=== PATIENT | female | born 1980 | race American Indian/Alaskan Native ===

== ENCOUNTER 2022-08-16 12:31 | Outpatient (CLI) | payer SELFPAY ==
[2022-08-16 13:03] VITALS: BP 111/61
[2022-08-16 17:46] LABS: Color,Urine Amber (Yellow)
[2022-08-16 17:55] LABS: Bacteria,Urine 1+ /HPF (Negative); Calcium Oxalate Crystals,Urine 2+; Mucus,Urine 3+ /HPF
[2022-08-16 18:16] LABS: Ictotest,Urine Negative (Negative)
[2022-08-16] MEDS ORDERED: LIDOCAINE-MPF (1%) 10 MG/1 ML VIAL 5 ML INFILTRATI ONE (19:00)
--- NOTE | 2022-08-17 08:05 | Ultrasound Report ---
ULTRASOUND OBSTETRIC LIMITED ULTRASOUND BIOPHYSICAL PROFILE INDICATION / CLINICAL INFORMATION: BPP and KEM. COMPARISON: None available. FINDINGS: BREATHING MOVEMENT = 2 GROSS BODY MOVEMENT = 2 TONE = 2 QUALITATIVE AMNIOTIC FLUID VOLUME = 2 TOTAL BIOPHYSICAL SCORE = 8/8 HEART RATE (beats per minute): 160 AMNIOTIC FLUID INDEX (cm) = 8.6 (normal = 7-24 cm) PRESENTATION: Cephalic. ADDITIONAL FINDINGS: None. IMPRESSION: 1. Biophysical Score = 8/8 Signer Name: James Santa MD Signed: 08/16/2022 4:46 PM Workstation Name: [id number]
== END 2022-08-16 18:55 | disposition home or self-care (01) ==
LOC: TRG 12:31 → APU 12:34 → TRG 18:55
PROVIDERS: ATTEND Obstetrics & Gynecology
DX: O26.893 Other specified pregnancy related conditions, third trimester (principal); R10.30 Lower abdominal pain, unspecified; O09.523 Supervision of elderly multigravida, third trimester; O99.353 Diseases of the nervous system complicating pregnancy, third trimester; G43.909 Migraine, unspecified, not intractable, without status migrainosus; Z3A.38 38 weeks gestation of pregnancy
CPT/HCPCS: 36415; 59025; 76815; 76819; 81001; 84112; 96372; J0696; J3490

== ENCOUNTER 2022-08-26 19:30 | Outpatient (CLI) | payer SELFPAY ==
[2022-08-26 20:01] VITALS: BP 123/77
== END 2022-08-26 21:15 | disposition home or self-care (01) ==
LOC: TRG 19:30 → APU 19:33 → TRG 21:15
PROVIDERS: ATTEND Obstetrics & Gynecology
DX: O47.1 False labor at or after 37 completed weeks of gestation (principal); Z3A.40 40 weeks gestation of pregnancy
CPT/HCPCS: 59025

== ENCOUNTER 2022-08-27 12:14 | Inpatient (IN) | payer SELFPAY ==
[2022-08-27] MEDS ORDERED: NALOXONE 0.4 MG/1 ML INJ IV PRN ×2 (14:10→21:26)
[2022-08-27] MEDS ORDERED: OXYTOCIN 10 UNIT/1 ML INJ IM PRN (14:10)
[2022-08-27] MEDS ORDERED: fentaNYL 100 MCG/2 ML INJ IV PRN (14:10)
[2022-08-27] MEDS ORDERED: TERBUTALINE 1 MG/1 ML INJ SUB-Q PRN (14:10)
[2022-08-27] MEDS ORDERED: CARBOPROST TROMETHAMINE 250 MCG/1 ML INJ IM PRN (14:10)
[2022-08-27] MEDS ORDERED: ACETAMINOPHEN 325 MG TAB PO PRN (14:10)
[2022-08-27] MEDS ORDERED: miSOPROStol 200 MCG TAB PR PRN (14:10)
[2022-08-27] MEDS ORDERED: MINERAL OIL 30 ML ORAL LIQD PO PRN (14:10)
[2022-08-27] MEDS ORDERED: ONDANSETRON 4 MG/2 ML INJ IV PRN (14:10)
[2022-08-27] MEDS ORDERED: LOPERAMIDE 2 MG CAP PO PRN (14:10)
[2022-08-27] MEDS ORDERED: METHYLERGONOVINE MALEATE 0.2 MG/ML VIAL IM PRN (14:10)
[2022-08-27] MEDS ORDERED: BUTORPHANOL 2 MG/1 ML INJ IV PRN ×2 (14:10)
[2022-08-27] MEDS ORDERED: LIDOCAINE (2%) 20 MG/1 ML VIAL 20 ML MDV INFILTRATI ONE (14:10)
[2022-08-27] MEDS ORDERED: ePHEDrine SULFATE 50 MG/1 ML INJ IV PRN ×2 (14:10→21:26)
[2022-08-27] MEDS ORDERED: LACTATED RINGERS 1,000 ML IV SCH (14:15)
[2022-08-27] MEDS ORDERED: AMPICILLIN/NS 1 GM/50 ML 1 GM/50 ML BAG IV ONE (14:19)
[2022-08-27] MEDS ORDERED: AMPICILLIN/NS 2 GM/100 ML 2 GM/100 ML BAG IV ONE ×2 (14:19→20:40)
--- NOTE | 2022-08-27 14:34 | Ultrasound Report ---
ULTRASOUND OBSTETRIC LIMITED ULTRASOUND BIOPHYSICAL PROFILE INDICATION / CLINICAL INFORMATION: bpp. Clinical Gestational Age (GA) in weeks, days: 40, 2 TECHNIQUE: Transabdominal. COMPARISON: 08/16/2022 FINDINGS: BREATHING MOVEMENT = 2 GROSS BODY MOVEMENT = 2 TONE = 2 QUALITATIVE AMNIOTIC FLUID VOLUME = 2 TOTAL BIOPHYSICAL SCORE = 8/8 HEART RATE (beats per minute): 140 AMNIOTIC FLUID INDEX (cm) = 6.6 (normal = 7-24 cm) PRESENTATION: Cephalic. ADDITIONAL FINDINGS: Although there is mild oligohydramnios the biophysical score for amniotic fluid is set at 2 given the presence of 2 separate quadrants measuring above 2 cm IMPRESSION: 1. Biophysical Score = 8/8 2. Mild oligohydramnios Signer Name: Arsh Ruiz DO Signed: 08/27/2022 2:30 PM Workstation Name: [id number]
[2022-08-27 14:38] LABS: Hematocrit 34.7 % (30.3-42.9); Hemoglobin 11.7 gm/dl (10.1-14.3); Mean Corpuscular HGB Conc 34 % (30-34); Mean Corpuscular Volume 92 fl (79-97); Platelet Count 206 K/mm3 (140-440); Red Blood Count 3.75 M/mm3 (3.65-5.03)
[2022-08-27] MEDS ORDERED: OXYTOCIN DRIP 30 UNITS/500 ML BAG IV SCH ×2 (15:00)
[2022-08-27 15:04] LABS: Hepatitis C Virus Antibody Non-Reactive (NonReactive)
--- NOTE | 2022-08-27 20:18 | History and Physical Report ---
History of Present Illness Date of examination: 08/27/22 Date of admission: 08/27/22 14:10 Chief complaint: CONTRACTIONS History of present illness: . 40+2wks. DELPHINE 08/25/22 Past History Past Medical History: no pertinent history - Obstetrical History Expected Date of Delivery: 08/25/22 Actual Gestation: 40 Week(s) 2 Day(s) : 5 Para: 2 Number of Living Children: 2 Medications and Allergies Allergies Allergy/AdvReac Type Severity Reaction Status Date / Time No Known Allergies Allergy Verified 08/27/22 12:36 Active Meds: Active Medications Acetaminophen (Acetaminophen 325 Mg Tab) 650 mg PO Q4H PRN PRN Reason: Pain, Mild (1-3) Butorphanol Tartrate (Butorphanol 2 Mg/1 Ml Inj) 1 mg IV Q2H PRN PRN Reason: Pain, Moderate(4-6) LABOR PAIN Butorphanol Tartrate (Butorphanol 2 Mg/1 Ml Inj) 2 mg IV Q2H PRN PRN Reason: Pain , Severe (7-10) Carboprost Tromethamine (Carboprost Tromethamine 250 Mcg/1 Ml Inj) 250 mcg IM ONCE PRN PRN Reason: Uterine Bleeding Ephedrine Sulfate (Ephedrine Sulfate 50 Mg/1 Ml Inj) 10 mg IV Q2M PRN PRN Reason: Hypotension Fentanyl (Fentanyl 100 Mcg/2 Ml Inj) 100 mcg IV Q2H PRN PRN Reason: Pain,Severe (7-10) LABOR PAIN Last Admin: 08/27/22 19:46 Dose: 100 mcg Oxytocin/Sodium Chloride (Pitocin/Ns 30 Unit/500ml) 30 units in 500 mls @ 2 mls/hr IV TITR KRISTY; Protocol Last Titration: 08/27/22 17:45 Dose: 6 mls/hr Lactated Ringer's (Lactated Ringers) 1,000 mls @ 125 mls/hr IV DIRECT KRISTY Last Admin: 08/27/22 16:19 Dose: 125 mls/hr Oxytocin/Sodium Chloride (Pitocin/Ns 30 Unit/500ml) 30 units in 500 mls @ 40 mls/hr IV TITR KRISTY; Protocol Ampicillin Sodium (Ampicillin/Ns 2 Gm/100 Ml) 2 gm in 100 mls @ 100 mls/hr IV ONCE ONE; Protocol Stop: 08/27/22 21:39 Loperamide HCl (Loperamide 2 Mg Cap) 2 mg PO ONCE PRN PRN Reason: give with Hemabate Methylergonovine Maleate (Methylergonovine Maleate 0.2 Mg/Ml Vial) 0.2 mg IM ONCE PRN PRN Reason: Uterine Bleeding Mineral Oil (Mineral Oil 30 Ml Oral Liqd) 30 ml PO QHS PRN PRN Reason: Constipation Misoprostol (Misoprostol 200 Mcg Tab) 800 mcg ND ONCE PRN PRN Reason: Uterine Bleeding Naloxone HCl (Naloxone 0.4 Mg/1 Ml Inj) 0.1 mg IV Q2MIN PRN PRN Reason: Res Rate </= 8 or 02 SAT < 92% Ondansetron HCl (Ondansetron 4 Mg/2 Ml Inj) 4 mg IV Q8H PRN PRN Reason: Nausea And Vomiting Oxytocin (Oxytocin 10 Unit/1 Ml Inj) 10 unit IM ONCE PRN PRN Reason: Uterine Bleeding Terbutaline Sulfate (Terbutaline 1 Mg/1 Ml Inj) 0.25 mg SUB-Q ONCE PRN PRN Reason: Hyperstimulation/Hypertonicity Review of Systems All systems: negative Genitourinary: contractions - Vital Signs Vital signs: Vital Signs Temp Resp 98.5 F 18 08/27/22 12:43 08/27/22 12:43 Temp Pulse Resp BP Pulse Ox 98.5 F 94 H 19 135/70 98 08/27/22 19:21 08/27/22 19:21 08/27/22 19:21 08/27/22 19:46 08/27/22 19:21 - Physical Exam Lungs: Positive: Normal air movement Abdomen: Positive: normal appearance, soft, distention, normal bowel sounds Uterus: Positive: enlarged, normal contour Extremities: Positive: normal Deep Tendon Reflex Grade: Normal +2 - Obstetrical FHR: auscultation normal Results Result Diagrams: 08/27/22 14:05 All other labs normal. Assessment and Plan - Patient Problems (1) Irregular contractions Current Visit: Yes Status: Acute (2) 40 weeks gestation of Current Visit: Yes Status: Acute Plan to address problem: Admit. Augment contractions.
[2022-08-27] MEDS ORDERED: fentaNYL-BUPIV 2 MCG/ML-0.125% 200 MCG/100 ML BAG EPIDURAL SCH (21:26)
[2022-08-27 21:27] VITALS: BP 131/63
--- NOTE | 2022-08-27 21:27 | Anesthesia Consultation ---
Anesthesia Consult and Med Hx Date of service: 08/27/22 - Airway Anesthetic Teeth Evaluation: Good ROM Head & Neck: Adequate Mental/Hyoid Distance: Adequate Mallampati Class: Class II Intubation Access Assessment: Probably Good - Pulmonary Exam CTA: Yes - Cardiac Exam Cardiac Exam: RRR - Pre-Operative Health Status ASA Pre-Surgery Classification: ASA2 Proposed Anesthetic Plan: Epidural - Pulmonary Hx Smoking: No Hx Asthma: No Hx Respiratory Symptoms: No SOB: No COPD: No Home Oxygen Therapy: No Hx Pneumonia: No Hx Sleep Apnea: No - Cardiovascular System Hx Hypertension: No Hx Coronary Artery Disease: No Hx Heart Attack/AMI: No Hx Angina: No Hx Percutaneous Transluminal Coronary Angioplasty (PTCA): No Hx Cardia Arrhythmia: No Hx Pacemaker: No Hx Internal Defibrillator: No Hx Valvular Heart Disease: No Hx Heart Murmur: No Hx Peripheral Vascular Disease: No - Central Nervous System Hx Seizures: No CVA: No Hx Back Pain: No Hx Psychiatric Problems: No - Gastrointestinal Hx Ulcer: No Hx Gastroesophageal Reflux Disease: No - Endocrine Hx Renal Disease: No Hx End Stage Renal Disease: No Hx Cirrhosis: No Hx Liver Disease: No Hx Insulin Dependent Diabetes: No Hx Non-Insulin Dependent Diabetes: No Hx Thyroid Disease: No Hx Hypothyroidism: No Hx Hyperthyroidism: No - Hematic Hx Anemia: No Hx Sickle Cell Disease: No - Other Systems Hx Alcohol Use: No Hx Substance Use: No Hx Cancer: No Hx Obesity: No
--- NOTE | 2022-08-27 21:28 | Anesthesia Day of Surgery ---
Anesthesia Day of Surgery - Day of Surgery Patient Examined: Yes Patient H&P Reviewed: Yes Patient is NPO: Yes Beta Blockers: No Cardiac Clearance: No Pulmonary Clearance: No Dannie's Test: N/A
--- NOTE | 2022-08-27 21:29 | Progress Note ---
Labor Epidural - Labor Epidural Start Time: 21:09 Stop Time: 21:17 Performed by:: LAURYN TELLEZ Procedure: Epidural Requested for Labor Pain. H&P and PT Chart reviewed and consent obtained. Time out performed and the procedure was explained, all questions answered. Patient was placed in a sitting position with monitors applied. The PTs back was prepped and draped in usual sterile fashion. The Skin was localized with 3 mL of 1% lidocaine at L3-L4. A 17-gauge Touhy epidural needle was advanced to KIRA with saline at 7 cm and no blood/CSF was noted via epidural needle. Epidural catheter was advanced to 12 cm. There was negative aspiration for blood and CSF in the catheter and negative response to a test dose of 3 ml 1.5% lidocaine w/ Epi and a sterile dressing was applied Patient tolerated the procedure well and there were no immediate complications noted.
== END 2022-08-27 23:32 | disposition home or self-care (01) | DRG 998 ==
LOC: TRG 12:14 → APU 12:15 → LD 14:52 → TRG 18:09 → LD 18:29
PROVIDERS: ADMIT Obstetrics & Gynecology; ATTEND Obstetrics & Gynecology
DX: O80 Encounter for full-term uncomplicated delivery (principal); Z3A.40 40 weeks gestation of pregnancy
CPT/HCPCS: 36415; 76819; 85027; 86592; 86706; 86762; 86803; 86850; 86900; 86901; 87806; 88307; G0378; J3490; J0290; J2590; J3010; J7120